=== PATIENT | female | born 1950 | race Caucasian/White ===

== ENCOUNTER 2021-07-18 10:50 | Inpatient (IN) | payer MEDICARE, OTHER ==
[~2021-07-18] VITALS: Ht 172.7 cm; Wt 68.0 kg
[2021-07-18] MEDS ORDERED: MULT-439 PO (11:49)
[2021-07-18] MEDS ORDERED: FURO-144 PO (11:49)
[2021-07-18] MEDS ORDERED: METO25TA4 PO (11:49)
[2021-07-18] MEDS ORDERED: SPIR25TA6 PO (11:49)
[2021-07-18] MEDS ORDERED: CALC500T53 PO (11:49)
[2021-07-18] MEDS ORDERED: RISP1TAB97 PO (11:49)
[2021-07-18] MEDS ORDERED: TRAZ-182 PO (11:49)
[2021-07-18] MEDS ORDERED: ASPI-1169 PO (11:49)
[2021-07-18] MEDS ORDERED: MONT10TA22 PO (11:49)
[2021-07-18] MEDS ORDERED: ATOR20TA PO (11:49)
[2021-07-18] MEDS ORDERED: DOCU-141 PO (11:49)
[2021-07-18] MEDS ORDERED: GABA-536 PO (11:49)
[2021-07-18] MEDS ORDERED: CYAN-51 PO (11:49)
[2021-07-18] MEDS ORDERED: AMLO-212 PO (11:49)
--- NOTE | 2021-07-18 12:21 | NUR ---
CALLED DR. OLSEN
--- NOTE | 2021-07-18 12:38 | NUR ---
MOVE SHEET SUBMITTED
[2021-07-18 12:57] LABS: BASOPHILS % (AUTO) 0.3 % (0.0-2.0); EOSINOPHILS % (AUTO) 0.8 % (0.0-6.0); HEMATOCRIT 41 % (33-45); HEMOGLOBIN 13.3 g/dL (11.5-14.8); LYMPHOCYTES % (AUTO) 16.3 % (20.0-44.0); MEAN CORPUSCULAR HGB CONC 33 g/dl (31.0-36.0); MEAN CORPUSCULAR VOLUME 89 fL (82-100); MONOCYTES # (AUTO) 1.1 K/uL (0.1-1.30); MONOCYTES % (AUTO) 8.8 % (2.0-12.0); NEUTROPHILS # (AUTO) 9.1 K/uL (1.8-8.9); NEUTROPHILS % (AUTO) 73.8 % (43.0-81.0); PLATELET COUNT (AUTO) 243 K/uL (150-450); RED BLOOD CELL COUNT(AUTO) 4.57 MIL/uL (4.0-5.2); WHITE BLOOD COUNT (AUTO) 12.3 K/uL (4.3-11.0)
[2021-07-18 13:14] LABS: ALBUMIN 3.3 g/dL (3.4-5.0); BILIRUBIN,DIRECT 0.1 mg/dL (0.0-0.2); BILIRUBIN,TOTAL 0.4 mg/dL (0.2-1.0); CALCIUM, SERUM 8.8 mg/dL (8.5-10.1); POTASSIUM 4.5 mmol/L (3.5-5.1); TOTAL PROTEIN, SERUM 6.9 g/dL (6.4-8.2)
[2021-07-18] MEDS ORDERED: HYDROCODONE/APAP 10/325MG TABLET PO ONE (14:00)
[2021-07-18] MEDS ORDERED: HYDROCODONE/APAP 10/325MG TABLET ONE (14:00)
--- NOTE | 2021-07-18 15:53 | NUR ---
JALYN REED (ROOMATE) [phone]
--- NOTE | 2021-07-18 17:12 | NUR ---
[phone] JAYA (ROOM MATE).
[2021-07-18] MEDS ORDERED: MAG HYDROX/AL HYDROX/SIMETH 30 ML UDC PO PRN (18:00)
[2021-07-18] MEDS ORDERED: Z GUARD REMEDY 4 OZ OINT TP PRN (18:00)
[2021-07-18] MEDS ORDERED: ONDANSETRON HCL/PF 4 MG/2 ML VIAL IVP PRN (18:00)
[2021-07-18] MEDS ORDERED: HYDROCODONE/APAP 5/325MG TABLET PO PRN (18:00)
[2021-07-18] MEDS ORDERED: ACETAMINOPHEN 325 MG TABLET PO PRN (18:00)
--- NOTE | 2021-07-18 18:09 | NUR ---
GOT BED 328-1
--- NOTE | 2021-07-18 18:40 | NUR ---
REPORT GIVEN TO KAYCEE FOR ANGELA
--- NOTE | 2021-07-18 19:00 | NUR ---
MS GOOD HUMOR VENDOR NOTES RECEIVED LYING COMFORTABLY ON BED,NEW ADMIT FROM ER,ALERT,ORIENTED X4,CHIEF COMPLAINTS OF LOWER BACK PAIN,S/P FALL AT THE FACILITY,ASSISTED LIVING,SUSTAINED L1 FRACTURE.WITH KNOWN HISTORY OF BRAIN MASS,SALINE LOCK INTACT AND PATENT,HARD OF HEARING ON BOTH EARS,NOT WEARING HER HEARING AIDS AT THE MOMENT.NO SKIN ISSUES.VACCINATED WITH COVID VACCINE X3,WITH BOOSTER.ON BEDREST.CALL LIGHT IN REACH,NEEDS ANTICIPATED.
[2021-07-18 19:30] VITALS: BP 118/72
[2021-07-18 20:00] VITALS: BP 118/72
--- NOTE | 2021-07-18 20:00 | NUR ---
MS RN NOTES C/O LOWER BACK PAIN 10/10 ON PAIN SCALE,REFUSED NORCO.HOSPITALIST RUBENS NOTIFIED,AWAITING FOR ORDERS.
--- NOTE | 2021-07-18 20:23 | NUR ---
MS RN NOTES HOSPITALIST RUBENS ORDERED MORPHINE 1MG IV X DOSE,OFFERED TO PATIENT AND SHE COMMENTED, PAIN IS BETTER,DOSE HELD TILL PATIENT CALLED FOR PAIN MANAGEMENT.
[2021-07-18] MEDS: ENOXAPARIN SODIUM 40 MG/0.4 ML DISP.SYRIN SQ SCH (20:35)
[2021-07-18] MEDS ORDERED: MORPHINE SULFATE INJ 2 MG/ML DISP.SYRIN IV ONE (21:00)
[2021-07-18] MEDS ORDERED: MAGNESIUM HYDROXIDE 30 ML UDC PO PRN (22:00)
[2021-07-18] MEDS: TRAZODONE 50 MG TABLET PO SCH (22:15)
[2021-07-19] MEDS ORDERED: MORPHINE SULFATE INJ 2 MG/ML DISP.SYRIN IV PRN ×2 (03:00→20:30)
--- NOTE | 2021-07-19 03:16 | NUR ---
MS RN NOTES PAIN MANAGEMENT C/O MID LOWER BACK PAIN 10/10 ON PAIN SCALE,MORPHINE 1MG IV X 1DOSE ADMINISTERED ORDERED.
--- NOTE | 2021-07-19 06:33 | NUR ---
MS RN NOTES SLEPT WITH INTERVALS,PAIN MANAGEMENT EFFECTIVE,STILL REFUSING NORCO FOR MODERATE PAIN.INCONTINENT OF URINE.CALLS FREQUENTLY FOR SIMPLE THINGS,IN NO ACUTE DISTRESS.CALL LIGHT IN REACH,NEEDS ATTENDED.
--- NOTE | 2021-07-19 07:30 | NUR ---
RN MS NOTES PT IN BED, AWAKE, ALERT AND ORIENTED, NEEDY, NO COMPLAINT OF PAIN, NOT IN DISTRESS, ASSISTED WITH PERICARE, ASSISTED WITH BREAKFAST, CALL LIGHT WITHIN REACH, NEEDS ATTENDED.
[2021-07-19 08:00] VITALS: BP 154/96
[2021-07-19] MEDS: CALCIUM CARBONATE (1250) 500 MG TABLET PO SCH ×2 (09:00→09:24)
[2021-07-19] MEDS: MULTIVIT W/MINERALS 1 TAB TABLET PO SCH ×2 (09:00→09:25)
[2021-07-19] MEDS: GABAPENTIN 300 MG CAPSULE PO SCH ×3 (09:24→17:22)
[2021-07-19] MEDS: SPIRONOLACTONE 25 MG TABLET PO SCH (09:24)
[2021-07-19] MEDS: DOCUSATE SODIUM 250 MG CAPSULE PO SCH (09:24)
[2021-07-19] MEDS: risperiDONE 1 MG TABLET PO SCH ×2 (09:25→17:22)
[2021-07-19] MEDS: CYANOCOBALAMIN 500 MCG TABLET PO SCH (09:25)
[2021-07-19] MEDS: AMLODIPINE BESYLATE 5 MG TABLET PO SCH (09:25)
[2021-07-19] MEDS: MONTELUKAST SODIUM (10MG) 10 MG TABLET PO SCH (09:25)
[2021-07-19] MEDS: FUROSEMIDE 40 MG TABLET PO SCH (09:25)
[2021-07-19] MEDS: PANTOPRAZOLE 40 MG TABLET.DR PO SCH (09:25)
[2021-07-19] MEDS: ASPIRIN 81 MG TAB.CHEW PO SCH (09:25)
[2021-07-19] MEDS: METOPROLOL SUCCINATE 25 MG TAB.SR.24H PO SCH (09:35)
[2021-07-19 09:57] LABS: BILIRUBIN,URINE NEGATIVE (NEGATIVE); COLOR,URINE YELLOW (YELLOW); LEUKOCYTE ESTERASE ,URINE NEGATIVE (NEGATIVE); NITRITE, URINE NEGATIVE (NEGATIVE); PH,URINE 7.5 (5.0-8.0); PROTEIN,URINE NEGATIVE (NEGATIVE); UGLUCOSE NEGATIVE (NEGATIVE); UROBILINOGEN,URINE 0.2 EU/dL (0.2)
--- NOTE | 2021-07-19 10:36 | NUR ---
RN MS NOTES PT SEEN AND EXAMINED BY DR. BULLOCK, PLAN OF CARE DISCUSSED WITH PT, VERBALIZED UNDERSTANDING, PT REFUSED LAB DRAW THIS MORNING, MADE AWARE, WILL CONTINUE TO MONITOR.
[2021-07-19 16:00] VITALS: BP 138/60
[2021-07-19 17:12] LABS: CALCIUM, SERUM 8.9 mg/dL (8.5-10.1); CREATININE 0.9 mg/dL (0.6-1.3); MAGNESIUM 1.7 mg/dL (1.8-2.4); POTASSIUM 4.2 mmol/L (3.5-5.1)
[2021-07-19] MEDS: ENOXAPARIN SODIUM 40 MG/0.4 ML DISP.SYRIN SQ SCH (17:28)
--- NOTE | 2021-07-19 18:41 | NUR ---
RN MS NOTES PT IN BED, AWAKE, ALERT AND ORIENTED, WATCHING TV, NO COMPLAINT OF PAIN, NOT IN DISTRESS, CALL LIGHT WITHIN REACH, ASSISTED IN REPOSITIONING, PERINEAL CARE PROVIDED NEEDED, SEEN BY DR. BULLOCK TODAY, PLAN OF CARE DISCUSSED WITH PT, VERBALIZED UNDERSTANDING, PT HAD MRI OF LUMBAR SPINE TODAY, PM MEDS GIVEN, ALL NEEDS ATTENDED.
--- NOTE | 2021-07-19 19:27 | NUR ---
RN MS NOTES PT IN BED, AWAKE, ALERT AND ORIENTED, WATCHING TV, NO COMPLAINT OF PAIN, NOT IN DISTRESS, CALL LIGHT WITHIN REACH, ASSISTED IN REPOSITIONING, PERINEAL CARE PROVIDED NEEDED, SAFETY MEASURES FOLLOWED AND MAINTAINED AT ALL TIMES.. WILL CONTINUE OT MONITOR.
[2021-07-19] MEDS ORDERED: MAGNESIUM OXIDE 400 MG TABLET PO ONE (19:30)
[2021-07-19 20:00] VITALS: BP 107/74
[2021-07-19 20:48] VITALS: BP 107/74
[2021-07-19] MEDS: TRAZODONE 50 MG TABLET PO SCH (21:22)
[2021-07-19] MEDS: ATORVASTATIN 10 MG TABLET PO SCH (21:26)
[2021-07-20 06:48] LABS: BASOPHILS % (AUTO) 0.3 % (0.0-2.0); EOSINOPHILS % (AUTO) 1.4 % (0.0-6.0); HEMATOCRIT 39 % (33-45); HEMOGLOBIN 13.5 g/dL (11.5-14.8); LYMPHOCYTES # (AUTO) 1.8 K/uL (0.8-4.8); LYMPHOCYTES % (AUTO) 17.1 % (20.0-44.0); MEAN CORPUSCULAR HGB CONC 35 g/dl (31.0-36.0); MEAN CORPUSCULAR VOLUME 87 fL (82-100); MONOCYTES # (AUTO) 1.1 K/uL (0.1-1.30); MONOCYTES % (AUTO) 10.7 % (2.0-12.0); NEUTROPHILS # (AUTO) 7.5 K/uL (1.8-8.9); NEUTROPHILS % (AUTO) 70.5 % (43.0-81.0); PLATELET COUNT (AUTO) 227 K/uL (150-450); RED BLOOD CELL COUNT(AUTO) 4.51 MIL/uL (4.0-5.2); WHITE BLOOD COUNT (AUTO) 10.7 K/uL (4.3-11.0)
[2021-07-20 07:14] LABS: CALCIUM, SERUM 8.5 mg/dL (8.5-10.1); CARBON DIOXIDE 28 mmol/L (21-32); CHLORIDE 99 mmol/L (98-107); CREATININE 0.9 mg/dL (0.6-1.3); GLUCOSE 96 mg/dL (74-106); MAGNESIUM 1.8 mg/dL (1.8-2.4); SODIUM SERUM 136 mmol/L (136-145); UREA NITROGEN, BLOOD 20 mg/dL (7-18)
--- NOTE | 2021-07-20 07:30 | NUR ---
ms rn received on bed,awake,alert,oriented x 4,not in any form of distress, respirations even unlabored, no sob noted, lungs are clear,abdomen soft,positive bowel sounds,denies pain at this time,all needs attended.
--- NOTE | 2021-07-20 08:20 | NUR ---
ms bertrand breakfast served, due meds given,tolerated well.
[2021-07-20] MEDS: FUROSEMIDE 40 MG TABLET PO SCH (08:48)
[2021-07-20] MEDS: SPIRONOLACTONE 25 MG TABLET PO SCH (08:48)
[2021-07-20] MEDS: CYANOCOBALAMIN 500 MCG TABLET PO SCH (08:49)
[2021-07-20] MEDS: MONTELUKAST SODIUM (10MG) 10 MG TABLET PO SCH (08:49)
[2021-07-20] MEDS: GABAPENTIN 300 MG CAPSULE PO SCH ×3 (08:49→17:40)
[2021-07-20] MEDS: DOCUSATE SODIUM 250 MG CAPSULE PO SCH ×2 (08:49→09:00)
[2021-07-20] MEDS: ASPIRIN 81 MG TAB.CHEW PO SCH (08:49)
[2021-07-20] MEDS: risperiDONE 1 MG TABLET PO SCH ×2 (08:49→17:40)
[2021-07-20] MEDS: CALCIUM CARBONATE (1250) 500 MG TABLET PO SCH (08:49)
[2021-07-20] MEDS: MULTIVIT W/MINERALS 1 TAB TABLET PO SCH (08:49)
[2021-07-20] MEDS: METOPROLOL SUCCINATE 25 MG TAB.SR.24H PO SCH (08:54)
[2021-07-20] MEDS: AMLODIPINE BESYLATE 5 MG TABLET PO SCH (08:54)
[2021-07-20] MEDS: PANTOPRAZOLE 40 MG TABLET.DR PO SCH (08:55)
--- NOTE | 2021-07-20 10:00 | NUR ---
ms rn was seen by gracie de la cruz np, still waiting for the delivery of back brace,all needs attended.
[2021-07-20] MEDS: TRAMADOL HCL 50 MG TABLET PO PRN ×2 (12:46→21:30)
--- NOTE | 2021-07-20 17:32 | NUR ---
ms rn back brace was delivered, pt will see her in am,all needs attended.
[2021-07-20] MEDS: ENOXAPARIN SODIUM 40 MG/0.4 ML DISP.SYRIN SQ SCH (18:00)
--- NOTE | 2021-07-20 19:30 | NUR ---
MS RN OPENING NOTES RECEIVED PATIENT LYING IN BED AWAKE, HOB ELEVATED. A/O X4. C/O PAIN ON HER LOWER BACK AT THIS TIME. OFFERED PAIN MED BUT REFUSED. BREATHING EVEN AND NON-LABORED IN ROOM AIR. HAS RIGHT ANTECUBITAL IV ACCESS #20G. NO S/S OF INFILTRATION NOTED. EDEMA ON BILATERAL LOWER EXTREMITIES NOTED. SAFETY PRECAUTIONS IN PLACE. WILL CONTINUE PLAN OF CARE.
[2021-07-20 20:00] VITALS: BP 107/60
[2021-07-20] MEDS: ATORVASTATIN 10 MG TABLET PO SCH (21:22)
[2021-07-20] MEDS: TRAZODONE 50 MG TABLET PO SCH (21:22)
--- NOTE | 2021-07-20 21:30 | NUR ---
MS RN NOTES PATIENT REQUESTED FOR PAIN MEDICINE. C/O PAIN ON HER LOWER BACK 11/17. PRN TRAMADOL 50 MG ADMINISTERED. TOLERATED WELL.
--- NOTE | 2021-07-21 07:00 | NUR ---
MS RN CLOSING NOTES PATIENT LYING IN BED WITH EYES CLOSED. A/O X4. EASY TO AROUSE. NO C/O PAIN AT THIS TIME. TOLERATING ROOM AIR WELL. ABDOMEN SOFT AND NON-TENDER. HAS RIGHT ANTECUBITAL IV ACCESS #20G AND SALINE LOCKED. INTACT, PATENT AND FLUSHING. SKIN ASSESSMENT DONE. SAFETY MEASURES IN PLACE: BED LOW AND LOCKED, SIDE RAILS UP X2, CALL LIGHT WITHIN REACH.
--- NOTE | 2021-07-21 07:30 | NUR ---
ms rn received on bed, awake,alert,oriented x4,not in any form of distress, respirations even and unlabored,no sob noted, lungs are clear,abdomen soft,positive bowel sounds, denies pain at this time, lumbar fx w/ body brace on, will monitor patient.
[2021-07-21] MEDS: PANTOPRAZOLE 40 MG TABLET.DR PO SCH (07:48)
[2021-07-21] MEDS: TRAMADOL HCL 50 MG TABLET PO PRN ×2 (07:48→15:32)
[2021-07-21 08:02] VITALS: BP 115/86
--- NOTE | 2021-07-21 08:20 | NUR ---
ms nr breakfast served due meds given, tolerated well.
[2021-07-21] MEDS: risperiDONE 1 MG TABLET PO SCH ×2 (09:46→17:11)
[2021-07-21] MEDS: ASPIRIN 81 MG TAB.CHEW PO SCH (09:46)
[2021-07-21] MEDS: SPIRONOLACTONE 25 MG TABLET PO SCH (09:46)
[2021-07-21] MEDS: FUROSEMIDE 40 MG TABLET PO SCH (09:46)
[2021-07-21] MEDS: DOCUSATE SODIUM 250 MG CAPSULE PO SCH (09:46)
[2021-07-21] MEDS: CALCIUM CARBONATE (1250) 500 MG TABLET PO SCH (09:46)
[2021-07-21] MEDS: GABAPENTIN 300 MG CAPSULE PO SCH ×3 (09:46→17:11)
[2021-07-21] MEDS: MULTIVIT W/MINERALS 1 TAB TABLET PO SCH (09:46)
[2021-07-21] MEDS: MONTELUKAST SODIUM (10MG) 10 MG TABLET PO SCH (09:46)
[2021-07-21] MEDS: CYANOCOBALAMIN 500 MCG TABLET PO SCH (09:47)
[2021-07-21] MEDS: METOPROLOL SUCCINATE 25 MG TAB.SR.24H PO SCH (09:47)
[2021-07-21] MEDS: AMLODIPINE BESYLATE 5 MG TABLET PO SCH (09:47)
--- NOTE | 2021-07-21 11:00 | NUR ---
ms rn was seen by pt, will be discharge today.
--- NOTE | 2021-07-21 15:25 | NUR ---
ms metal furniture polisher arranged for discharge soon at 4 pm.
[2021-07-21 15:41] VITALS: BP 120/74
[2021-07-21] MEDS: ENOXAPARIN SODIUM 40 MG/0.4 ML DISP.SYRIN SQ SCH (17:11)
--- NOTE | 2021-07-21 19:12 | NUR ---
CONTINUITY OF CARE Received patient awake, sitting up in chair. TLSO Brace in place. Alert Oriented x4. On room air. No c/o pain or any discomfort. Patient to be dc to Assisted living facility, awaiting transport.
--- NOTE | 2021-07-21 19:45 | NUR ---
DISCHARGED Transport arrived. IV peripheral line removed, gauze applied, no bleeding. VS remains stable. DC instruction given to patient by AM primary nurse per report. Patient left via [facility]/ambulance in stable condition, belongings send with the patient upon dc.
== END 2021-07-21 19:45 | DRG 542 ==
LOC: ER 10:52 → MED 18:10
PROVIDERS: ADMIT Nurse Practitioner Family; ATTEND Nurse Practitioner Family
DX: M48.56XA Collapsed vertebra, not elsewhere classified, lumbar region, initial encounter for fracture (principal); G93.6 Cerebral edema; E44.1 Mild protein-calorie malnutrition; Z20.822 Contact with and (suspected) exposure to COVID-19; G93.9 Disorder of brain, unspecified; E78.5 Hyperlipidemia, unspecified; I10 Essential (primary) hypertension; F32.A Depression, unspecified; R56.9 Unspecified convulsions; J45.909 Unspecified asthma, uncomplicated; M81.0 Age-related osteoporosis without current pathological fracture; F29 Unspecified psychosis not due to a substance or known physiological condition; G47.00 Insomnia, unspecified; Z79.82 Long term (current) use of aspirin; Z79.899 Other long term (current) drug therapy; M48.02 Spinal stenosis, cervical region; Z80.7 Family history of other malignant neoplasms of lymphoid, hematopoietic and related tissues; Z82.49 Family history of ischemic heart disease and other diseases of the circulatory system; Z87.442 Personal history of urinary calculi; Y92.091 Bathroom in other non-institutional residence as the place of occurrence of the external cause; W01.0XXA Fall on same level from slipping, tripping and stumbling without subsequent striking against object, initial encounter; F43.9 Reaction to severe stress, unspecified; D72.829 Elevated white blood cell count, unspecified; E88.09 Other disorders of plasma-protein metabolism, not elsewhere classified; M43.15 Spondylolisthesis, thoracolumbar region; R79.89 Other specified abnormal findings of blood chemistry
CPT/HCPCS: 36415; 70450-TC; 72125-TC; 72131-TC; 72148-TC; 80048-TC; 80076-TC; 81001; 83735-TC; 84100-TC; 85025-TC; 85730-TC; 87081-TC; 97116-TC; 97530-TC; C9803; G0378; J1650; J2270